=== PATIENT | male | born 1990 | race Caucasian/White ===

== ENCOUNTER 2016-09-14 23:34 | Emergency (ER) | payer OTHER ==
[2016-09-14 23:44] VITALS: BP 134/86; PULSE 88; TEMP 99.6; BMI 18.6
[2016-09-14] MEDS ORDERED: OSELTAMIVIR PHOSPHATE 75 MG CAPSULE ONE (23:45)
[2016-09-14] MEDS ORDERED: OSELTAMIVIR PHOSPHATE 75 MG CAPSULE PO ONE (23:46)
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
== END 2016-09-14 23:59 | disposition home or self-care (01) ==
LOC: FER 23:34
DX: J11.1 Influenza due to unidentified influenza virus with other respiratory manifestations (principal); R21 Rash and other nonspecific skin eruption
CPT/HCPCS: 87804; 99281-25